=== PATIENT | male | born 1970 | race Asian ===

== ENCOUNTER 2019-04-03 11:20 | Emergency (ER) | payer OTHER ==
[~2019-04-03] VITALS: Ht 127 cm; Wt 68.0 kg
[~2019-04-03 11:20] MED LIST: IBUPROFEN800 MG PO; ORPH100T PO
[2019-04-03] MEDS ORDERED: ADVIL200 M1 PO (11:42)
[2019-04-03] MEDS ORDERED: CELEBREX200MG PO (11:51)
== END 2019-04-03 13:54 | disposition home or self-care (01) ==
LOC: ER 11:20
DX: M46.86 Other specified inflammatory spondylopathies, lumbar region (principal); M54.5 Low back pain